=== PATIENT | male | born 1945 | race Caucasian/White ===

== ENCOUNTER 2020-10-28 13:50 | Outpatient (CLI) | payer OTHER, SELFPAY ==
--- NOTE | 2020-10-28 13:52 | US_ITS ---
WS: [id number] ULTRASOUND RENAL TECHNIQUE: Ultrasound examination of both kidneys. CLINICAL INFORMATION: CKD3 COMPARISON: None. FINDINGS: RIGHT:Nonobstructing right renal parenchymal calculus measuring 15 mm. Right kidney is normal in size and appearance. Echogenicity: Normal. Cortical thickness: 1.3 cm; Normal. Hydronephrosis: None. Perinephric fluid: None. Right kidney measures: 10.6 cm x 6.2 cm x 5.6 cm. LEFT:Left simple renal cortical cyst measuring 15 x 11 mm Left kidney is normal in size and appearance. Echogenicity: Normal. Cortical thickness: cm; Normal. Hydronephrosis: None. Perinephric fluid: None. Left kidney measures: 12.1 cm x 5.5 cm x 6.8 cm. Normal visualized aorta. Normal bladder. US/US renal BI* [id number] IMPRESSION: 1. No hydronephrosis in either kidney. 2. Normal bladder. 3. Nonobstructing right renal parenchymal calculus measuring 15 mm. 4. Left simple renal cortical cyst measuring 15 x 11 mm
[2020-10-28 14:39] LABS: Basophils % 0.5 %; Eosinophils # 0.2 10^3/uL (0.0-0.8); Eosinophils % 2.8 %; Hematocrit 53.1 % (42.0-52.0); Hemoglobin 17.4 g/dL (11.7-16.6); Lymphocytes # 3.3 10^3/uL (0.8-4.8); Lymphocytes % 43.3 %; Mean Corpuscular HGB Conc 32.8 g/dL (30.0-36.0); Mean Corpuscular Volume 94.5 fl (80-94); Mean Platelet Volume 8.9 fL (7.4-10.4); Monocytes # 0.6 10^3/uL (0.2-0.9); Monocytes % 7.6 %; Neutrophils # 3.44 10^3/uL (1.8-7.7); Neutrophils % 45.7 %; Nucleated Red Blood Cells % 0 %; Platelet Count 248 10^3/cmm (130-400); Red Blood Count 5.62 10^6/uL (4.1-5.3); Red Cell Distribution Width 13.2 % (12.1-15.1); White Blood Count 7.5 10^3/uL (4.0-10.0)
[2020-10-28 14:54] LABS: Albumin Level 3.8 g/dL (3.5-5.2); Anion Gap 14.4 (5-19); Blood Urea Nitrogen 17 mg/dL (8-23); Calcium 8.7 mg/dL (8.5-10.5); Carbon Dioxide 30 mmol/L (22-29); Chloride 103 mmol/L (98-107); Glucose 106 mg/dL (65-115); Phosphorus 3.4 mg/dL (2.5-4.5); Potassium 4.4 mmol/L (3.5-5.1); Sodium 143 mmol/L (136-145)
[2020-10-28 14:59] LABS: Creatinine Urine, Random 327 mg/dL (39-259); Microalbum Creatinine Ratio Ur 28 mg/dL (0-20); Microalbumin Random Urine 9 ug/dL (0-20)
[2020-10-28 15:10] LABS: Calcium 8.9 mg/dL (8.5-10.5)
[2020-10-28 15:17] LABS: Parathyroid Hormone 40.2 pg/mL (15-65)
[2020-10-28 16:24] LABS: Estmated Average Glucose 114; Hemoglobin A1C 5.6 % (4.0-6.0)
== END 2020-10-28 13:51 | disposition home or self-care (01) ==
LOC: RAD 13:50
PROVIDERS: PCP Family Medicine; Visit Provider Internal Medicine
DX: N18.32 Chronic kidney disease, stage 3b (principal); N20.0 Calculus of kidney; N28.1 Cyst of kidney, acquired
CPT/HCPCS: 36415; 76770; 80069; 82044; 82310; 83036; 83970; 85025

== ENCOUNTER 2023-03-30 10:48 | Outpatient (CLI) | payer OTHER, SELFPAY ==
--- NOTE | 2023-03-30 10:56 | USCV_ITS ---
Cuauhtemoc Reyes Age: 78 Gender: M : 1945 Exam Date: 03/30/2023 11:14 Ordering Phys: Howard Watts XX Technologist: CT Exam Location: [facility] – [place]_ Indication: afib BP: 140 / 84 HR: 67 Rhythm: Sinus Technical Quality: Adequate MEASUREMENTS (Male / Female) Normal Values 2D ECHO LV Chamber Size 5.2 cm RV Chamber Size 4.5 cm LVOT Diameter 2.4 cm LV Ejection Fraction MOD 2C 44.2 % LV Ejection Fraction 2C AL 47.0 % LA Diameter 5.5 cm LA Width 4.9 cm LA Height 7.0 cm RA Width 4.4 cm RA Height 7.9 cm Aorta at Sinotubular Diameter 3.7 cm IVC Diameter 1.9 cm M-MODE Aortic Annulus Diameter 4.3 cm LA Ao Ratio MM 1.3 MV E Point Septal Separation 0.5 cm DOPPLER AV Peak Velocity 109.0 cm/s LVOT Peak Velocity 83.0 cm/s AV Area Cont Eq vti 2.7 cm squared AV Area Cont Eq pk 3.4 cm squared MV Peak Velocity 124.0 cm/s MV E' Velocity 14.0 cm/s TR Peak Velocity 241.4 cm/s TR Peak Gradient 23.3 mmHg TR Mean Velocity 150.5 cm/s TR Mean Gradient 10.0 mmHg TR Velocity Time Integral 49.5 cm TV Peak E Velocity 85.0 cm/s Right Atrial Pressure 3.0 mmHg Pulmonary Artery Systolic Pressu 26.3 mmHg PV Peak Velocity 73.0 cm/s FINDINGS Left Ventricle Left ventricle is normal in size. LV systolic function is normal with EF 55 to 60%. No regional wall motion abnormalities are seen. Right Ventricle Normal in size and function Right Atrium Dilated Left Atrium Dilated Mitral Valve Mild mitral annular calcifications. Mild mitral regurgitation. Aortic Valve Aortic valve is thickened. Mild aortic regurgitation. No aortic stenosis. Tricuspid Valve Mild tricuspid regurgitation. Pulmonary artery systolic pressure is normal. 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 Mild mitral regurgitation Biatrial enlargement. 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 No comparison studies are available. Wojciech Hinkle MD (Electronically Signed) Final Date: 13 April 2023 11:55 S
== END 2023-03-30 10:49 | disposition home or self-care (01) ==
LOC: RAD 10:48
PROVIDERS: PCP Family Medicine; Visit Provider Chiropractor
DX: I48.91 Unspecified atrial fibrillation (principal)
CPT/HCPCS: 93005; 93306

== ENCOUNTER 2024-11-02 09:21 | Outpatient (CLI) | payer OTHER, SELFPAY ==
--- NOTE | 2024-11-02 09:31 | USCV_ITS ---
Cuauhtemoc Reyes Age: 79 Gender: M : 1945 Exam Date: 11/02/2024 09:59 Ordering Phys: Krystle Barrow MD Technologist: PD Exam Location: [facility] [place] Indication: screening HISTORY: Diameter (cm) AP x Transverse x Length Velocity (cm/s) Waveform Prox Aorta: 2.20 x 2.40 x 34.50 Mid Aorta: 2.00 x 2.40 x 47.70 Distal Aorta: 2.00 x 2.60 x 88.60 Right Iliac Prox: 1.89 x 1.21 x 68.10 Left Iliac Prox: 0.83 x 1.12 x 89.90 Stent Prox Landing x x Aneurysmal Sac Max x x Lt Lat Sac Dim Rt Lat Sac Dim Stent Dist Landing x x Right Iliac Stent x x Left Iliac Stent x x Right Renal Art Left Renal Art FINDINGS: CONCLUSIONS No evidence of abdominal aortic aneurysm. 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
== END 2024-11-02 09:22 | disposition home or self-care (01) ==
LOC: RAD 09:24
PROVIDERS: PCP Family Medicine; Visit Provider Family Medicine
DX: Z13.6 Encounter for screening for cardiovascular disorders (principal)
CPT/HCPCS: 76706